=== PATIENT | female | born 1940 | race Two or more races ===

== ENCOUNTER 2023-01-06 09:45 | Emergency (ER) | payer OTHER ==
[~2023-01-06] VITALS: Ht 167.6 cm; Wt 63.0 kg
[2023-01-06] MEDS ORDERED: SIMVASTATIN5 MG (10:15)
[2023-01-06] MEDS ORDERED: HYZAAR 50-12.51 EACH PO (10:15)
[2023-01-06] MEDS ORDERED: PYRIDOXINE HCL25 MG PO (10:15)
[2023-01-06] MEDS ORDERED: SPIRONOLACTONE25 MG PO (10:16)
[2023-01-06] MEDS ORDERED: METOPROLOL SUCC50 MG PO (10:17)
== END 2023-01-06 13:24 | disposition home or self-care (01) ==
LOC: ER 09:45
DX: R31.0 Gross hematuria (principal); I10 Essential (primary) hypertension; N13.2 Hydronephrosis with renal and ureteral calculous obstruction

== ENCOUNTER 2024-02-14 08:45 | Emergency (ER) | payer OTHER ==
[~2024-02-14] VITALS: Ht 165.1 cm; Wt 68.0 kg
[~2024-02-14 08:45] MED LIST: HYZAAR 50-12.51 EACH PO; METOPROLOL SUCC50 MG PO; PYRIDOXINE HCL25 MG PO; SIMVASTATIN5 MG; SPIRONOLACTONE25 MG PO
[2024-02-14] MEDS ORDERED: 0.9 % SODIUM CHLORIDE 1,000 ML IV SCH (09:30)
[2024-02-14] MEDS ORDERED: KETOROLAC TROMETHAMINE 30 MG VIAL IV ONE (09:30)
[2024-02-14 10:09] LABS: HEMATOCRIT 35.2 % (36.0-45.00); HEMOGLOBIN 11.9 g/dL (12.0-15.00); MEAN CELL VOLUME 93.7 fL (80.00-100.00); MEAN CORPUSCULAR HEMOGLOBIN 31.8 pg (27.00-32.0); MEAN CORPUSCULAR HGB CONC 33.9 g/dl (32.0-36.0); PLATELET COUNT 140 K/uL (150-450); RED BLOOD COUNT 3.75 M/uL (4.00-6.00); RED CELL DISTRIBUTION WIDTH 14.6 % (11.5-14.5)
[2024-02-14 10:27] LABS: CALCIUM 9.6 mg/dL (8.5-10.1); CREATININE SERUM 1.11 mg/dL (0.55-1.02); GFR 47.18
[2024-02-14 10:29] LABS: POTASSIUM 4.55 mEq/L (3.5-5.1)
[2024-02-14 11:31] LABS: PH,URINE 6.5 (5.0-8.0); URINE APPEARANCE Cloudy; URINE BILIRRUBIN Negative (NEGATIVE); URINE BLOOD Large; URINE COLOR Orange; URINE GLUCOSE Negative (NEGATIVE); URINE LEUKOCYTE Trace; URINE NITRATE Negative; URINE PROTEIN 30 (NEGATIVE); URINE UROBILINOGEN 0.2 E.U./dl
[2024-02-14 11:32] LABS: URINE BACTERIA 323.8 uL (0.0-1933); URINE EPITHELIAL CELLS 12.2 uL (0.0-38.8); URINE RBC 5914.2 uL (0.0-20.8); URINE WBC 16.2 uL (0.0-23.2)
[2024-02-14] MEDS ORDERED: TAMSULOSIN HCL 0.4 MG CAP PO ONE (13:30)
== END 2024-02-14 13:53 | disposition home or self-care (01) ==
LOC: ER 08:46
PROVIDERS: Emergency Medicine
DX: R31.9 Hematuria, unspecified (principal); R10.2 Pelvic and perineal pain; I10 Essential (primary) hypertension
CPT/HCPCS: 36415; 74176; 96365; 96366; 99284; J1885; J7030

== ENCOUNTER 2024-03-09 11:41 | Outpatient (CLI) | payer OTHER | END 2024-03-09 12:04 | disposition home or self-care (01) | LOC: TOM 11:41 | PROVIDERS: ATTEND Urology | DX: N20.0 Calculus of kidney (principal) ==

== ENCOUNTER 2025-02-13 11:44 | Emergency (ER) | payer OTHER ==
[~2025-02-13] VITALS: Ht 167.6 cm; Wt 64.4 kg
[2025-02-13] MEDS ORDERED: 0.9 % SODIUM CHLORIDE 500 ML IV ONE (14:30)
[2025-02-13] MEDS ORDERED: FAMOTIDINE/PF 20 MG/2 ML VIAL IV ONE (14:30)
[2025-02-13 15:39] LABS: BASO % 0.9 % (0.1-1.2); EOS # 0.25 (0.04-0.54); EOS % 3.2 % (0.7-7.0); LYMPH # 2.10 (1.18-3.74); LYMPH % 26.7 % (19.3-53.1); MEAN PLATELET VOLUME 13.90 fl (9.4-12.4); MONO # 0.75 (0.24-0.82); MONO % 9.5 % (4.7-12.5); NEUT # 4.68 (1.56-6.13); NEUT % 59.4 % (34.0-71.1); RED CELL DISTRIBUTION WIDTH 13.8 % (11.6-14.4)
[2025-02-13 15:40] LABS: URINE APPEARANCE Clear; URINE BILIRRUBIN Negative (NEGATIVE); URINE BLOOD Negative; URINE COLOR Yellow; URINE GLUCOSE Negative (NEGATIVE); URINE KETONE Negative (NEGATIVE); URINE LEUKOCYTE Trace; URINE NITRATE Negative; URINE PROTEIN Negative (NEGATIVE); URINE UROBILINOGEN 0.2 E.U./dl
[2025-02-13 15:44] LABS: URINE BACTERIA 466.5 uL (0.0-1933); URINE EPITHELIAL CELLS 36.3 uL (0.0-38.8); URINE RBC 2.9 uL (0.0-20.8); URINE WBC 24.9 uL (0.0-23.2)
[2025-02-13 16:03] LABS: ALT/SGPT 19.0 U/L (12-78); AST/SGOT 16.0 U/L (15-37); BILIRUBIN TOTAL 1.02 mg/dL (0.3-1.2); BUN CREA RATIO 17.0 (7.0-25.0); CREATININE SERUM 1.07 mg/dL (0.55-1.02); GFR 49.09; GLOBULINA 3.8 G/DL (2.4-3.5); GLUCOSE FASTING 97.0 mg/dL (65-100); OSMOLALITY SERUM 283.0 MOSM/KG (275-295); PHOSPHOKINASE CREATININE 36.0 U/L (26-192)
[2025-02-13 16:39] LABS: URINE CAST 0.00 uL (0.0-1.40)
[2025-02-13] MEDS ORDERED: TYLENOL ARTHRI650 MG PO (17:05)
[2025-02-13] MEDS ORDERED: NORFLEX100MG PO (17:05)
[2025-02-13] MEDS ORDERED: KETOROLAC TROMETHAMINE 15 MG VIAL IV ONE (17:15)
== END 2025-02-13 17:31 ==
LOC: ER 11:44
PROVIDERS: Emergency Medicine
DX: R10.31 Right lower quadrant pain (principal); M54.16 Radiculopathy, lumbar region; N28.1 Cyst of kidney, acquired; N20.0 Calculus of kidney; K57.10 Diverticulosis of small intestine without perforation or abscess without bleeding
CPT/HCPCS: 36415; 74176; 96365; 96366; 99283; J1885; J3490